=== PATIENT | male | born 1965 | race Caucasian/White ===

== ENCOUNTER 2022-10-17 10:12 | Outpatient (CLI) | payer BC, SELFPAY ==
[2022-10-17 14:59] LABS: Chloride* 104 mmol/L (96-114); Sodium* 138 mmol/L (135-149)
[2022-10-17 15:00] LABS: Potassium* 4.6 mmol/L (3.6-5.1)
[2022-10-17 15:02] LABS: Carbon Dioxide* 29 mmol/L (20-32); Cholesterol* 205 mg/dL (90-199); Estimated Glomerular Filt Rate 88 ml/min
[2022-10-17 15:03] LABS: Blood Urea Nitrogen* 16 mg/dL (7-30); Calcium* 9.7 mg/dL (8.4-10.6); Glucose* 85 mg/dL (60-115); HDL Cholesterol* 68 mg/dL (>=40); LDL Cholesterol Calculated 129 mg/dL (<100); Triglycerides* 40 mg/dL (40-149)
[2022-10-17 15:36] LABS: PSA Screen* 0.98 ng/mL (0.10-4.00)
== END 2022-10-17 10:13 | disposition home or self-care (01) ==
PROVIDERS: PCP Family Medicine; Visit Provider Family Medicine
DX: Z00.00 Encounter for general adult medical examination without abnormal findings (principal); M25.50 Pain in unspecified joint; Z12.5 Encounter for screening for malignant neoplasm of prostate; Z13.6 Encounter for screening for cardiovascular disorders; Z13.1 Encounter for screening for diabetes mellitus
CPT/HCPCS: 80048; 80061; 84153; 86618

== ENCOUNTER 2023-10-16 10:31 | Outpatient (CLI) | payer BC, SELFPAY | END 2023-10-16 10:32 | disposition home or self-care (01) | LOC: LKVREF 10:35 | PROVIDERS: PCP Family Medicine; Visit Provider Family Medicine | DX: Z00.00 Encounter for general adult medical examination without abnormal findings (principal); Z13.1 Encounter for screening for diabetes mellitus; Z12.5 Encounter for screening for malignant neoplasm of prostate | CPT/HCPCS: 84153 ==

== ENCOUNTER 2024-04-20 15:15 | Outpatient (CLI) | payer BC, SELFPAY ==
--- OUTSIDE RECORDS SUMMARY | 2024-04-20 15:19 | XMS_ITS | Encounter Summary ---
Author Organization [facility] Address [address] [place] [address] Care Team Providers Care Evaporator Operator Molasses Name Role Phone Suzanne Bautista PA-C Unavailable + [phone] Alexsander Buckner MD Primary Care Provider Ashley vailable Alexsander Buckner MD Unavailable Unavailab Suzanne Fernandez PA-C Unavailable + [phone] Suzanne Bautista PA-C Primary Care Provid er Alexsander Buckner MD Unavailable Unavailab Suzanne Fernandez PA-C Unavailable + [phone] Alexsander Buckner MD Unavailable Unavailab Suzanne Fernandez PA-C Unavailable + [phone] Suzanne Bautista PA-C Unavailable + [phone] Alexsander Buckner MD Unavailable Unavailab jacqueline Encounter Details Date Type Department Care Team (Late st Contact Info) Description 10/27/2020 MyC Medical Advice [facility] [address] [place] [address] Alexsander Buckner MD [place]NA[place]IVE IN [place] 02/24/2021 Social History Tobacco Use Types Packs/Day Years Used Date Smoking Tobacco: Never Smokeless Tobacco: Never Alcohol Use Standard Drinks/Week Comments Yes 0 (1 standard drink = 0.6 oz pur e alcohol) AUDIT-C Answer Date Recorded Q1: How often do you have a drink containing alc ohol? 2-3 times a week 04/06/2020 Q2: How many drinks containi ng alcohol do you have on a typical day when you are drinking? 5 or 6 04/06/2020 Q3: How often do you have si x or more drinks on one occasion? Less than monthly 04/06/2020 PHQ-2 Answer Date Recorded PHQ-2 Score 0 04/15/2020 Sex and Gender Information Value Date Recorded Sex Assigned at Not on file Gender Identity Not on file Sexual Orientation Not on file COVID-19 Exposure Response Date Recorded In the last month, have you been in contact with someone who was confirmed or suspected to have Coronavirus / COVID-19? No / Unsure 10/25/2020 10:24 AM SOFTWARE VALIDATION ENGINEER documented as of this encounter Plan of Treatment Not on file documented as of this encounter Visit Diagnoses Not on filedocumented in this encounter Care Teams Evaporator Operator Molasses Relationship Specialty Start Date End Date Alexsander Buckner MD [address] [address] PCP - General Family Practice 05/31/20 12/14/20 Suzanne Bautista PA-C [address] [address] PCP - General Family Medicine 12/15/20 Suzanne Bautista PA-C [address] [address] Assigned PCP 11/27/20 06/03/21 Alexsander Buckner MD [place]IVE IN [place] 02/24/2021 Assigned PCP 10/30/20 Suzanne Bautista PA-C [address] [address] Assigned PCP 03/10/20 10/29/20 Alexsander Buckner MD INACTIVE IN [place] 02/24/2021 Assigned PCP 06/04/21 Suzanne Bautista PA-C [address] [place] [address] Assigned PCP 10/29/21 12/02/21 Alexsander Buckner MD INACTIVE IN [place] 02/24/2021 Assigned PCP 12/03/21 Suzanne Bautista PA-C [address], [address] [place] [address] Assigned PCP 04/28/22 10/12/22 Suzanne Bautista PA-C [address], [address] [place] [address] Assigned PCP 12/22/22 05/31/23 Alexsander Buckner MD INACTIVE IN [place] 02/24/2021 Assigned PCP 06/01/23 documented as of this encounter
--- OUTSIDE RECORDS SUMMARY | 2024-04-20 15:19 | XMS_ITS | Clinical Summary ---
Author Organization [facility] Address [address] [place] [address] Care Team Providers Care Corporate Safety Manager Name Role Phone Suzanne Bautista PA-C Primary Care Provid er Allergies No known active allergies Medications Medication Sig Dispensed Refills Start Date End Date Status calcium polycarbophil (FIBERCON) 625 MG tablet Take 2 tablets (1,250 mg) by mouth daily 04/06/2020 Active [place]-3 Fish Oil 500 MG capsule Take 1 capsule (500 mg) by mouth daily 04/06/2020 Active sulfamethoxazole-tri methoprim (BACTRIM DS) 800-160 MG tabletIndications:Pr ostate infection Take 1 tablet by mouth 2 times daily 60 tablet 1 10/25/2020 Active Additional Information Patient not taking.Reported on 07/14/2023 Active Problems Problem Noted Date Diagnosed Date ACP (advance care planning) 04/15/2020 History of melanoma excision 04/06/2020 Elevated BP without diagnosis of hypertension Resolved Problems Problem Noted Date Diagnosed Date Resolved Date Health [facility] 04/15/2020 04/13/2024 Immunizations Name Administration Dates Next Due Hepatitis B, Adult 12/08/1998,07/14/1998, 998 Influenza Vaccine >6 months,quad, PF 11/06/2019 MMR 04/22/2019 Td (Adult), Adsorbed 05/18/2019,03/12/2000 Tdap (Adult) Unspecified Formulation 02/27/2010 Family History Medical History Relation Comments Colon Polyps Brother Skin Cancer Father Skin Cancer Mother Colon Cancer No family hx of Diabetes No family hx of Hyperlipidemia No family hx of Hypertension No family hx of Prostate Cancer No family hx of Relation Status Comments Brother Alive Father Maternal Grandfather Maternal Grandmother Mother Paternal Grandfather Paternal Grandmother Sister Alive Social History Tobacco Use Types Packs/Day Years Used Date Smoking Tobacco: Never Smokeless Tobacco: Never Tobacco Cessation:Counseling Given: Not Answered Alcohol Use Standard Drinks/Week Comments Yes 0 [...] Answer Date Recorded PHQ-2 Score 0 04/15/2020 Adolescent Education Answer Date Record ed Getting School Help Needed Not on file 07/23 Sex and Gender Information Value Date Recorded Sex Assigned at Not on file Gender Identity Not on file Sexual Orientation Not on file Last Filed Vital Signs Vital Sign Reading Time Taken Comments Blood Pressure 130/80 07/14/2023 7:09 PM CDT Pulse 89 07/14/2023 7:09 PM CDT Temperature 37.1 ??C (98.7 ??F) 07/14/2023 7:09 PM CD T Respiratory Rate 16 07/14/2023 7:09 PM CDT Oxygen Saturation 98% 07/14/2023 7:09 PM CDT Inhaled Oxygen Concentration - - Weight 77.1 kg (170 lb) 07/14/2023 7:09 PM CDT Height 177.8 cm (5' 10) 05/31/2020 9:44 AM CDT Body Mass Index 24.39 05/31/2020 9:44 AM CDT Plan of Treatment Health Maintenance Due Date Last Done Comments ANNUAL REVIEW OF HM ORDERS 1965 CT COLONOGRAPHY 1965 FIT 1965 FLEX SIG 1965 YEARLY PREVENTIVE VISIT 1965 sDNA (Cologuard) 1965 HEPATITIS C SCREENING 1983 ZOSTER IMMUNIZATION (1 of 2) 2015 COVID-19 Vaccine ( season) 2023 PHQ-2 (once per calendar year) 2023 04/15/2020 INFLUENZA VACCINE (Season Ended) 2024 08/15/2022, 08/09/2021, 11/06/2019 ADVANCE CARE PLANNING 04/15/2025 04/15/2020, 020 LIPID 04/16/2025 04/16/2020, 04/15/2020 GLUCOSE 07/14/2026 07/14/2023, 04/06/2020 DTAP/TDAP/TD IMMUNIZATION (3 - Td or Tdap) 05/18/2029 05/18/2019, 02/27/2010, 02/27/2010, Additional history exists COLONOSCOPY 05/09/2032 05/09/2022, 04/27, 04/02/2012 COLORECTAL CANCER SCREENING 05/09/2032 HEPATITIS B IMMUNIZATION Completed 999, 07/14/1998, 04/19/1998 HIV SCREENING Discontinued HPV IMMUNIZATION Aged Out No longer e ligible based on patient's age to complete this topic IPV IMMUNIZATION Aged Out No longer e ligible based on patient's age to complete this topic MENINGITIS IMMUNIZATION Aged Out No l onger eligible based on patient's age to complete this topic Pneumococcal Vaccine: Pediatrics (0 to 5 Years) and At-Risk Patients (6 to 64 Years) Aged Out No longer eligible based on patient's age to complete this topic RSV MONOCLONAL ANTIBODY Aged Out No l onger eligible based on patient's age to complete this topic Procedures Procedure Name Priority Date/Time Associated Diagnosis Comments COMPREHENSIVE METABOLIC PANEL Routine 07/14/2023 7:43 PM CDT Lyme arthritis (H) LIPID PANEL (BFP) Routine 04/15/2020 Screening for lipoid disorders from Last 3 Months or Most Recently Relevant to Health Maintenance Results * (ABNORMAL) Comprehensive metabolic panel (07/14/2023 7:43 PM CDT) Sodium 132(L) 136 - 145 mmol/L 07/15/2023 5:02 PM CDT [facility] Potassium 4.5 3.4 - 5.3 mmol/L 07/15/2023 5:02 PM CDT [facility] Chloride 98 98 - 107 mmol/L 07/15/2023 5:02 PM CDT [facility] Carbon Dioxide (CO2) 25 22 - 29 mmol/L 07/15/2023 5:02 PM CDT [facility] Anion Gap 9 7 - 15 mmol/L 07/15/2023 5:02 PM CDT [facility] Urea Nitrogen 13.9 6.0 - 20.0 mg/dL 07/15/2023 5:02 PM CDT [facility] Creatinine 0.93 0.67 - 1.17 mg/dL 07/15/2023 5:02 PM CDT [facility] Calcium 9.3 8.6 - 10.0 mg/dL 07/15/2023 5:02 PM CDT [facility] Glucose 104(H) 70 - 99 mg/dL 07/15/2023 5:02 PM CDT [facility] Alkaline Phosphatase 95 40 - 129 U/L 07/15/2023 5:02 PM CDT [facility] AST 27 0 - 45 U/L 07/15/2023 5:02 PM CDT [facility] Comment:Reference intervals for this test were updated on 04/08/2023 to more accurately reflect our healthy population. There may be differences in the flagging of prior results with similar values performed with this method. Interpretation of those prior results can be made in the context of the updated reference intervals. ALT 55 0 - 70 U/L 07/15/2023 5:02 PM CDT [facility] Comment:Reference intervals for this test were updated on 04/08/2023 to more accurately reflect our healthy population. There may be differences in the flagging of prior results with similar values performed with this method. Interpretation of those prior results can be made in the context of the updated reference intervals. Protein Total 6.6 6.4 - 8.3 g/dL 07/15/2023 5:02 PM CDT [facility] Albumin 4.0 3.5 - 5.2 g/dL 07/15/2023 5:02 PM CDT [facility] Bilirubin Total 0.8 <=1.2 mg/dL 07/15/2023 5:02 PM CDT [facility] GFR Estimate >90 >60 mL/min/1. 73m2 07/15/2023 5:02 PM CDT [facility] Blood BLOOD SPECIMEN / Unknown Venipuncture / Unknown 07/14/2023 7:43 PM CDT 07/14/2023 7:43 PM CDT Sonya Perez PA-C LAB - BLOOD ORDERABL ES [facility] [place] [facility] [address] [facility], [address] [place] [address], [facility] [phone] * (ABNORMAL) Lipid Panel (BFP) (04/15/2020) Cholesterol 205(A) 0 - 199 mg/dL [facility] INTERNAL Triglycerides 63 0 - 149 mg/dL [facility] INTERNAL HDL Cholesterol 62 40 - 150 mg/dL [facility] INTERNAL LDL Cholesterol Direct 130 0 - 130 mg/dL [facility] INTER[facility] Cholesterol/HDL Ratio 3 0 - 5 BFP INTERNAL Blood specimen (specimen) 04/15/2020 Suzanne Bautista PA-C LAB - NON-BE [facility] BLOOD LABS BFP INTERNAL from Last 3 Months or Most Recently Relevant to Health Maintenance Care Teams Corporate Safety Manager Relationship Specialty Start Date End Date Suzanne Bautista PA-C [address] , [facility] [address] [place] [address] PCP - General Family Medicine 12/15/20
--- OUTSIDE RECORDS SUMMARY | 2024-04-20 15:19 | XMS_ITS | Referral Summary ---
Author Organization [facility] Address [address] [place] [address] Care Team Providers Care Ticket Taker Ferryboat Name Role Phone Suzanne Bautista PA-C Primary Care Provid er Allergies No known active allergies Medications Medication Sig Dispensed Refills Start Date End Date Status calcium polycarbophil (FIBERCON) 625 MG tablet Take 2 tablets (1,250 mg) by mouth daily 04/06/2020 Active [place]-3 Fish Oil 500 MG capsule Take 1 [...] Noted Date Diagnosed Date Resolved Date Health [facility] 04/15/2020 04/13/2024 Immunizations Name Administration Dates Next Due Hepatitis B, Adult 12/08/1998,07/14/1998, 998 Influenza Vaccine >6 months,quad, PF 11/06/2019 MMR 04/22/2019 Td (Adult), Adsorbed 05/18/2019,03/12/2000 Tdap (Adult) Unspecified Formulation 02/27/2010 Social History Tobacco Use Types Packs/Day Years [...] 05/31/2020 9:44 AM CDT Plan of Treatment Not on file Procedures Procedure Name Priority Date/Time Associated Diagnosis [...] LAB - BLOOD ORDERABL ES [facility] [place] [facility] [address] [facility], [address] [place] [address], [facility] [phone] * (ABNORMAL) Lipid Panel (BFP) (04/15/2020) Cholesterol [...] Recently Relevant to Health Maintenance Care Teams Ticket Taker Ferryboat Relationship Specialty Start Date End Date Suzanne Bautista PA-C [address] , [facility] [address] [place] [address] PCP - General Family Medicine 12/15/20
--- OUTSIDE RECORDS SUMMARY | 2024-04-20 15:19 | XMS_ITS | Encounter Summary ---
Author Organization [facility] Address [address] [place] [address] Care Team Providers Care Wig Dresser Name Role Phone Suzanne Bautista PA-C Unavailable + [phone] Alexsander Buckner MD Primary Care Provider Ashley vailable Alexsander Buckner MD Unavailable Unavailab Suzanne Fernandez PA-C Primary Care Provid er Alexsander Buckner MD Unavailable Unavailab Suzanne Fernandez PA-C Unavailable + [phone] Alexsander Buckner MD Unavailable Unavailab Suzanne Fernandez PA-C Unavailable + [phone] Suzanne Bautista PA-C Unavailable + [phone] Alexsander Buckner MD Unavailable Unavailab le Reason for Visit * Reason Onset Date Comments Referral 11/08/2020 Encounter Details Date Type Department Care Team (Late st Contact Info) Description 11/08/2020 MyC Medical Advice [facility] [address] [place] [address] Alexsander Buckner MD INACTIVE IN [place] 02/24/2021 Referral Social History Tobacco Use Types Packs/Day Years [...] COVID-19? No / Unsure 10/25/2020 10:24 AM OVERSIZE LOAD PILOT ESCORT documented as of this encounter Miscellaneous Notes * Telephone Encounter - Alexsander Buckner - 11/09/2020 7:[address] [place] SIZE LOAD PILOT ESCORT documented in this encounter Plan of Treatment Not on file documented as of this encounter Visit Diagnoses Not on filedocumented in this encounter Care Teams Wig Dresser Relationship Specialty Start Date End Date Alexsander Buckner MD [address] [place] [address] PCP - General Family Practice 05/31/20 12/14/20 Suzanne Bautista PA-C [address] [address] PCP - General Family Medicine 12/15/20 Suzanne Bautista PA-C [address] [address] Assigned PCP 11/27/20 06/03/21 Alexsander Buckner MD [place]IVE IN [place] 02/24/2021 Assigned PCP 10/30/20 Alexsander Buckner MD INACTIVE IN [place] 02/24/2021 Assigned PCP 06/04/21 Suzanne Bautista PA-C [address], [address] [place] [address] Assigned PCP 10/29/21 12/02/21 Alexsander Buckner MD INACTIVE IN [place] 02/24/2021 Assigned PCP 12/03/21 Suzanne Bautista PA-C [address], [address] [place] [address] Assigned PCP 04/28/22 10/12/22 Suzanne Bautista PA-C [address], [address] [place] [address] Assigned PCP 12/22/22 05/31/23 Alexsander Buckner MD INACTIVE IN [place] 02/24/2021 Assigned PCP 06/01/23 documented as of this encounter
--- OUTSIDE RECORDS SUMMARY | 2024-04-20 15:19 | XMS_ITS | Encounter Summary ---
Author Organization [facility] Address [address] [place] [address] Care Team Providers Care Servomechanism Designer Name Role Phone Suzanne Bautista PA-C Unavailable + [phone] Alexsander Buckner MD Primary Care Provider Ashley vailaAlexsander Burnett MD Unavailable Unavailab Suzanen Fernandez PA-C Unavailable + [phone] Suzanne Bautista PA-C Primary Care Provid er Alexsander Buckner MD Unavailable Unavailab Suzanne Fernandez PA-C Unavailable + [phone] Alexsander Buckner MD Unavailable Unavailab Suzanne Fernandez PA-C Unavailable + [phone] Suzanne Bautista PA-C Unavailable + [phone] Alexsander Buckner MD Unavailable Unavailab jacquleine Encounter Details Date Type Department Care Team (Late st Contact Info) Description 06/07/2020 Orders Only [facility] [address] [facility] [address] [place] [address] Lorena Sullivan MA RUQ abdominal pain Social History Tobacco Use Types Packs/Day Years [...] have Coronavirus / COVID-19? No / Unsure 06/07/2020 12:21 PM CDT documented as of this encounter Plan of Treatment Not on file documented as of this encounter Procedures Procedure Name Priority Date/Time Associated Diagnosis Comments US ABDOMEN LIMITED Routine 06/07/2020 RUQ abdominal pain documented in this encounter Results * US Abdomen Limited (06/07/2020) Anatomical Region Laterality Modality Abdomen/Pelvis Other Narrative 06/07/2020 [facility] Phone: [phone] * Fax: [phone] [address] [place] [address] Age: 55 Y Dept No.: [id number] BRINA HARVEY : 1965 Chart # Gender: M Req. Phys: Suzanne Valencia PA-C Clinic MRN: Clinic: [facility] Acc#: [id number] Exam: US ABDOMEN LIMITED Exam Date: 06/07/2020 EXAM: US ABDOMEN LIMITED LOCATION: [facility] DATE/TIME: 06/07/2020 2:36 PM INDICATION: Intermittent right upper quadrant pain. COMPARISON: 09/29/2004 TECHNIQUE: Limited abdominal ultrasound. FINDINGS: GALLBLADDER: Normal. No gallstones, wall thickening, or pericholecystic fluid. Negative sonographic Hand's sign. BILE DUCTS: No biliary dilatation. The common duct measures 3 mm. LIVER: Normal parenchyma with smooth contour. No focal mass. RIGHT KIDNEY: No hydronephrosis. PANCREAS: The pancreas is largely obscured by overlying gas.. Normal caliber of the abdominal aorta. Patent intrahepatic IVC. No ascites. IMPRESSION: Negative gallbladder. Performed by: PATTI Transcribed By: SKYE on: 06/07/2020 4:32 PM CDT Finalized By: ABDOULAYE CHAPA M.D. on: 06/07/2020 4:32 PM CDT Dictated By: ABDOULAYE CHAPA M.D. Signed by: Page 1 of 1 Suzanne Bautista PA-C IMG US ORDER JOHN documented in this encounter Visit Diagnoses Diagnosis RUQ abdominal pain Abdominal pain, right upper quadrant documented in this encounter Care Teams Servomechanism Designer Relationship Specialty Start Date End Date Alexsander Buckner MD [address], [address] [address] PCP - General Family Practice 05/31/20 12/14/20 Suzanne Bautista PA-C [address], [address] [address] PCP - General Family Medicine 12/15/20 Suzanne Bautista PA-C [address], [address] [address] Assigned PCP 11/27/20 06/03/21 Alexsander Buckner MD INACTIVE IN [place] 02/24/2021 Assigned PCP 10/30/20 Suzanne Bautista PA-C [address], [address] [address] Assigned PCP 03/10/20 10/29/20 Alexsander Buckner MD [place] 02/24/2021 Assigned PCP 06/04/21 Suzanne Bautista PA-C [address], [address] [place] [address] Assigned PCP 10/29/21 12/02/21 Alexsander Buckner MD [place]IVE [place] 02/24/2021 Assigned PCP 12/03/21 Suzanne Bautista PA-C [address], [address] [place] [address] Assigned PCP 04/28/22 10/12/22 Suzanne Bautista PA-C [address], [address] [place] [address] Assigned PCP 12/22/22 05/31/23 Alexsander Buckner MD [place]IVE [place] 02/24/2021 Assigned PCP 06/01/23 documented as of this encounter
--- OUTSIDE RECORDS SUMMARY | 2024-04-20 15:20 | XMS_ITS | Clinical Summary ---
Author Organization [facility] Address [place], [place] [address] Care Team Providers Care Technology Applications Engineer Name Role Phone Sallie Delcid MD Primary Care Provider + Allergies No known active allergies Medications Medication Sig Dispensed Refills Start Date End Date Status omega-3 fatty acids-vitamin E (FISH OIL) 1,000 mg Cap Take by mouth. 0 09/26/2010 Act lake psyllium husk 0.4 gram cap Take 20 capsules by mouth once daily. 0 07/17/2017 Active Active Problems Problem Noted Date Diagnosed Date Hyperlipidemia, unspecified 03/17/2017 Overview: mild PAC (premature atrial contraction) 03/17/2017 Overview: Noted on EKG. Patient assymptomatic Insomnia, idiopathic 03/17/2017 Malignant melanoma of skin of trunk, except scro maxim 08/27/2012 Immunizations Name Administration Dates Next Due Hepatitis B (Adult) 12/08/1998,07/14/1998,1997 Td (Age >=7 Years) 03/12/2000 Tdap 02/27/2010 Family History Medical History Relation Name Comments Cancer-colon Brother polyps Good Health Daughter 1 Good Health Daughter 2 Cancer Father skin Hypertension Father Other Father Alcoholism Mother Cancer Mother skin Other Mother Good Health Sister Good Health Son Relation Name Status Comments Brother Alive Daughter 1 Alive Daughter 2 Alive Father (Age 70) liver canc er Mother (Age 57) esophagal varices Sister Alive Son Alive Social History Tobacco Use Types Packs/Day Years Used Date Smoking Tobacco: Never Smokeless Tobacco: Never Alcohol Use Standard Drinks/Week Comments Yes 8.3 (1 standard drink = 0.6 oz p ure alcohol) 6 daily on weekends Social Connections Answer Date Recorded Frequency of Communication with Friends and Fami ly Not on file 10/28/2021 Financial Resource Strain Answer Date R ecorded Difficulty of Paying Living Expenses Not on file 10/28/2021 Difficulty of Paying Living Expenses Not on file 10/28/2021 Sex and Gender Information Value Date Recorded Sex Assigned at Not on file Gender Identity Not on file Sexual Orientation Not on file Obstetrics History Last Filed Vital Signs Vital Sign Reading Time Taken Comments Blood Pressure 112/70 09/10/2017 9:21 AM MANUFACTURERS AGENT Pulse 96 09/10/2017 9:21 AM MANUFACTURERS AGENT Temperature 36.7 ??C (98 ??F) 09/10/2017 9:21 AM MANUFACTURERS AGENT Respiratory Rate 16 08/05/2014 7:18 PM CDT Oxygen Saturation 97% 09/10/2017 9:21 AM MANUFACTURERS AGENT Inhaled Oxygen Concentration - - Weight 78.5 kg (173 lb 1.6 oz) 09/10/2017 9:21 A M MANUFACTURERS AGENT Height 180 cm (5' 10.87) 09/10/2017 9:21 AM MANUFACTURERS AGENT Body Mass Index 24.23 09/10/2017 9:21 AM MANUFACTURERS AGENT Plan of Treatment Health Maintenance Due Date Last Done Comments HIV for age 15-65 1980 Hepatitis C screening for age 18-79 1983 Zoster (shingles) series for age 50+ (1 of 2) 2015 Depression screening for age 12+ 03/14/2018 03/14/2017, 11/02/2015 BMI (ht and wt on same day) for age 18+ 09/10/2018 09/10/2017, 03/14/2017, 09/11/2016, Additional history exists Lipids for age 45-75 06/07/2019 06/07/2014, 01/11/20 12 Tetanus booster 02/28/2020 02/27/2010, 03/12/2000 COVID-19 vaccine series ( season) 2023 Influenza for age 50-64 06/28/2024 Colonoscopy through age 75 05/09/2032 05/09/2022, Tdap Completed 02/27/2010 Pneumococcal series for age 6-64 Aged Out No longer eligible based on patient's age to complete this topic Procedures Procedure Name Priority Date/Time Associated Diagnosis Comments SCAN-COLONOSCOPY 05/09/2022 8:30 AM CDT LIPID PANEL W REFLEX MEASURED LDL Routine 06/07/2014 8:15 AM CDT Routine general medical examination at a health care facility from Last 3 Months or Most Recently Relevant to Health Maintenance Results * SCAN-COLONOSCOPY (05/09/2022 8:30 AM CDT) Narrative Procedure Note Camden Roa MD - 05/09/2022 7:31 AM CDT [facility] [address], [address], [place] [address] Patient Name: Mihir Isaac Gender: Male Exam Date: 05/09/2022 Visit Number: [id number] Age: 57 Years Date of : 1965 Attending MD: Camden Roa MD Medical Record#:[id number] Procedure: Colonoscopy Indications: Colorectal cancer screening Negative CS 10 y ago Family history of polyps in patient's brother. Age diagnosed:50-59. Referring MD: Referral Self Primary MD: Dong Melendez MD Medications: Intra Procedure Medications: Patient received monitored anesthesia care. Complications: No immediate complications Procedure: An examination of the heart and lungs was performed and found to be withinacceptable limits. . The patient was therefore deemed a reasonablecandidate for endoscopy and sedation. The risks and benefits of the procedure were explained to the patient.After obtaining informed consent, the patient received monitoredanesthesia care and I passed the scope without difficulty via the rectum to the ileum. The appendiceal orificeand ic valve were identified. The scope was retroflexed during theexamination The quality of the prep was good (Miralax/Gatorade/2 tabletsBisacodyl/Magnesium Citrate). This was a complete examination throughout the entire colon. Findings: Normal terminal ileum. Small internal hemorrhoids w/o bleeding. Polyp location: cecum. Quantity: 2. Size: 2-3 mm. Polyp shape:sessile. Maneuver: polypectomy was performed with a cold biopsy forceps. Removal: complete. Retrieval: complete. Bleeding: none. Polyp location: sigmoid. Quantity: 1. Size: 2 mm. Polyp shape: sessile. Maneuver: polypectomy was performed with a cold biopsy forceps . Removal: complete. Retrieval: complete. Bleeding: none. Impression: Colorectal polyps Hemorrhoids, internal MD impression comments: - Fiber rich diet. Preliminary Plan: The patient and their physician will receive a copy of the pathologyreport as well as pathology-based recommendations for future screening orsurveillance. Return to your primary care provider as needed. Pathology Results: A: COLON, CECUM, POLYPS: 1. Normal colonic mucosa; lymphoid aggregates are present(clinically, 2 polyps) 2. Negative for serrated change, dysplasia, and malignancy B: COLON, SIGMOID, POLYP: 1. Hyperplastic polyp MICROSCOPIC A: Performed B: Performed SPECIAL STAINING/DEEPER A: Deeper Electronically signed by: Aron [place] [address] Orders Instruction(s)/Education: Instruction/Education Timeframe Assessment Colon Cancer Prevention K63.5 Colon Cancer Prevention K63.5 Colon Polyps K63.5 Colon Polyps K63.5 Hemorrhoids K63.5 Hemorrhoids K63.5 High Fiber Diet K63.5 Final Plan: Repeat colonoscopy in 5 years. We will attempt to contact you at appropriate intervals via U.S. mail. Wemay not be able to find you or contact you at that time, therefore youshould know that the responsibility for following our recommendation restswith you. If you don't hear from us at the time your procedure is due,please contact our office to schedule an appointment. If your contactinformation should change, please contact our office so that we can updateyour record. _Electronically signed by: Camden Roa MD 05/09/2022 cc: Dong Melendez MD Camden Roa MD OTHER * (ABNORMAL) LIPID PANEL W REFLEX MEASURED LDL (06/07/2014 8:15 AM CDT) CHOLESTEROL,TOTAL 209(H) 100 - 199 mg/dL 06/07/2014 2:18 PM CDT [facility] TRIGLYCERIDES 80 <150 mg/dL 06/07/2014 2:18 PM CDT [facility] HDL CHOLESTEROL 50 >40 mg/dL 4 2:18 PM CDT [facility] NON-HDL CHOLESTEROL 159(H) <145 mg/dl 06/07/2014 2:18 PM CDT [facility] CHOL/HDL RATIO 4.18 <4.50 06/07/2014 2:18 PM CDT [facility] LDL CHOLESTEROL 143(H) <=130 mg/dL 06/07/2014 2:18 PM CDT [facility] PATIENT STATUS FASTING 06/07/2014 2:18 PM CDT [facility] Blood specimen (specimen) BLOOD SPECIMEN / Unknown Venipuncture / Unknown 06/07/2014 8:15 AM CDT 06/07/2014 8:19 AM CDT Alexsander Buckner MD CHEMISTRY [facility] [address] [place] [address], from Last 3 Months or Most Recently Relevant to Health Maintenance Advance Directives * Full Code (Latest Code Status on File) Date Activated Date Inactivated Comments 08/27/2012 10:51 AM 08/27/2012 3:08 PM * Full Code Date Activated Date Inactivated Comments 08/27/2012 8:33 AM 08/27/2012 10:51 AM Care Teams Technology Applications Engineer Relationship Specialty [place] [address] [place] [address] PCP - General Family Practice 03/17/17
== END 2024-04-20 15:16 | disposition home or self-care (01) ==
LOC: LKVREF 15:17
PROVIDERS: PCP Family Medicine; Visit Provider Family Medicine
DX: R06.00 Dyspnea, unspecified (principal)
CPT/HCPCS: 86140

== ENCOUNTER 2024-08-12 14:22 | Outpatient (CLI) | payer BC, SELFPAY ==
--- OUTSIDE RECORDS SUMMARY | 2024-08-12 14:26 | XMS_ITS | Encounter Summary ---
Author Organization [place] Address [address] [place] [address] Care Team Providers Care Toll Line Mechanic Name Role Phone Suzanne Bautista PA-C Unavailable + [phone] Alexsander Buckner MD Primary Care Provider Ashley vailable Alexsander Buckner MD Unavailable Unavailab Suzanne Fernandez PA-C Unavailable + [phone] Suzanne Bautista PA-C Primary Care Provid er Alexsander Buckner MD Unavailable Unavailab Suzanne Fernandez PA-C Unavailable + [phone] Alexsander Buckner MD Unavailable Unavailab Suzanne Fernandez PA-C Unavailable + [phone] Suzanne Bautista PA-C Unavailable + [phone] Alexsander Buckner MD Unavailable Unavailab jacqueline Encounter Details Date Type Department Care Team (Late st Contact Info) Description 10/27/2020 MyC Medical Advice [facility] [address] [place] [address] Alexsander Buckner MD INACTIVE IN [place] 02/24/2021 Social History Tobacco Use Types Packs/Day [...] COVID-19? 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 documented as of this encounter Plan of Treatment Not on file documented as of this encounter Visit Diagnoses Not on filedocumented in this encounter Care Teams Toll Line Mechanic Relationship Specialty Start Date End Date Alexsander Buckner MD [address] [address] PCP - General Family Practice 05/31/20 12/14/20 Suzanne Bautista PA-C [address] [address] PCP - General Family Medicine 12/15/20 Suzanne Bautista PA-C [address] [address] Assigned PCP 11/27/20 06/03/21 Alexsander Buckner MD INACTIVE IN [place] 02/24/2021 Assigned PCP 10/30/20 Suzanne Bautista PA-C [address] [address] Assigned PCP 03/10/20 10/29/20 Alexsander Buckner MD INACTIVE IN [place] 02/24/2021 Assigned PCP 06/04/21 Suzanne Bautista PA-C [address] [place] [address] Assigned PCP 10/29/21 12/02/21 Alexsander Buckner MD INACTIVE IN [place] 02/24/2021 Assigned PCP 12/03/21 Suzanne Bautista PA-C [address], [address] [place] [address] Assigned PCP 04/28/22 10/12/22 Suzanne Bautista PA-C [address], [address] [place] [address] Assigned PCP 12/22/22 05/31/23 Alexsander Buckner MD INACTIVE IN [place] 02/24/2021 Assigned PCP 06/01/23 documented as of this encounter
--- OUTSIDE RECORDS SUMMARY | 2024-08-12 14:26 | XMS_ITS | Encounter Summary ---
Author Organization [facility] Address [address] [place] [address] Care Team Providers Care Dry Color Tester Name Role Phone Suzanne Bautista PA-C Unavailable + [phone] Alexsander Buckner MD Primary Care Provider Ashley vailaAlexsander Burnett MD Unavailable Unavailab Suzanne Fernandez PA-C Unavailable + [phone] Suzanne Bautista PA-C Primary Care Provid er Alexsander Buckner MD Unavailable Unavailab Suzanne Fernandez PA-C Unavailable + [phone] Alexsander Buckner MD Unavailable Unavailab Suzanne Fernandez PA-C Unavailable + [phone] Suzanne Bautista PA-C Unavailable + [phone] Alexsander Buckner MD Unavailable Unavailab jacqueline Encounter Details Date Type Department Care Team (Late st Contact Info) Description 06/07/2020 Orders Only [facility] [address] [place] [address] Lorena Sullivan MA RUQ abdominal [...] Region Laterality Modality Abdomen/Pelvis Other Narrative 06/07/2020 [facility] Phone: [phone] * Fax: [phone] [address] [place] [address] Age: 55 Y Dept No.: [id number] BRINA HARVEY : 1965 Chart # Gender: M Req. Phys: Suzanne Valencia PA-C Clinic MRN: Clinic: [facility] Acc#: [id number] Exam: US ABDOMEN LIMITED Exam Date: 06/07/2020 EXAM: US ABDOMEN LIMITED LOCATION: [facility] DATE/TIME: 06/07/2020 2:36 PM INDICATION: Intermittent right [...] quadrant documented in this encounter Care Teams Dry Color Tester Relationship Specialty Start Date End Date Alexsander Buckner MD [address], [address] [address] PCP - General Family Practice 05/31/20 12/14/20 Suzanne Bautista PA-C [address], [address] [address] PCP - General Family Medicine 12/15/20 Suzanne Bautista PA-C [address], [address] [address] Assigned PCP 11/27/20 06/03/21 Alexsander Buckner MD I[place]CTIVE IN [place] 02/24/2021 Assigned PCP 10/30/20 Suzanne Bautista PA-C [address], [address] [address] Assigned PCP 03/10/20 10/29/20 Alexsander Buckner MD [place] 02/24/2021 Assigned PCP 06/04/21 Suzanne Bautista PA-C [address], [address] [place] [address] Assigned PCP 10/29/21 12/02/21 Alexsander Buckner MD [place] 02/24/2021 Assigned PCP 12/03/21 Suzanne Bautista PA-C [address], [address] [place] [address] Assigned PCP 04/28/22 10/12/22 Suzanne Bautista PA-C [address] [place] [address] Assigned PCP 12/22/22 05/31/23 Alexsander Buckner MD [place] IN [place] 02/24/2021 Assigned PCP 06/01/23 documented as of this encounter
--- OUTSIDE RECORDS SUMMARY | 2024-08-12 14:26 | XMS_ITS | Clinical Summary ---
Author Organization [facility] Address [address] [place] [address] Care Team Providers Care Client Technical Professional Name Role Phone Suzanne Bautista PA-C Primary Care Provid er Allergies No known active allergies Medications Medication Sig Dispensed Refills Start Date End Date Status calcium polycarbophil (FIBERCON) 625 MG tablet Take 2 tablets (1,250 mg) by mouth daily 04/06/2020 Active [place]-3 Fish Oil 500 MG capsule Take 1 [...] Noted Date Diagnosed Date Resolved Date Health Assisted 04/15/2020 04/13/2024 Immunizations Name Administration Dates Next [...] 1983 ZOSTER IMMUNIZATION (1 of 2) 2015 PHQ-2 (once per calendar year) 2023 04/15/2020 COVID-19 Vaccine ( season) 2024 INFLUENZA VACCINE (#1) 2024 2, 08/09/2021, 11/06/2019 ADVANCE CARE PLANNING 04/15/2025 04/15/2020, 020 LIPID 04/16/2025 04/16/2020, 04/15/2020 GLUCOSE 07/14/2026 07/14/2023, 04/06/2020 DTAP/TDAP/TD IMMUNIZATION (3 - Td or Tdap) 05/18/2029 05/18/2019, 02/27/2010, 02/27/2010, Additional history exists COLONOSCOPY 05/09/2032 05/09/2022, 04/27, 04/02/2012 COLORECTAL CANCER SCREENING 05/09/2032 RSV VACCINE (1 - 1-dose 75+ series) 2040 HEPATITIS B IMMUNIZATION Completed 999, 07/14/1998, 04/19/1998 [...] LAB - BLOOD ORDERABL ES [facility] [place] [facility] [address], [address] [place] [address], [facility] [phone] * (ABNORMAL) Lipid Panel (BFP) (04/15/2020) Cholesterol [...] Recently Relevant to Health Maintenance Care Teams Client Technical Professional Relationship Specialty Start Date End Date Suzanne Bautista PA-C [address] [place] [address] PCP - General Family Medicine 12/15/20
--- OUTSIDE RECORDS SUMMARY | 2024-08-12 14:26 | XMS_ITS | Referral Summary ---
Author Organization [facility] Address [address] [place] [address] Care Team Providers Care Rubber Tire Curer Name Role Phone Suzanne Bautista PA-C Primary Care Provid er Allergies No known active allergies Medications Medication Sig Dispensed Refills Start Date End Date Status calcium polycarbophil (FIBERCON) 625 MG tablet Take 2 tablets (1,250 mg) by mouth daily 04/06/2020 Active [place]-3 Fish Oil 500 MG capsule Take 1 [...] Noted Date Diagnosed Date Resolved Date Health Senior Living 04/15/2020 04/13/2024 Immunizations Name Administration Dates Next [...] LAB - BLOOD ORDERABL ES [facility] [place] [facility] [address], [address] [place] [address], [facility] [phone] * (ABNORMAL) Lipid Panel (BFP) (04/15/2020) Cholesterol [...] Recently Relevant to Health Maintenance Care Teams Rubber Tire Curer Relationship Specialty Start Date End Date Suzanne Bautista PA-C [address], [address] [place] [address] PCP - General Family Medicine 12/15/20
--- OUTSIDE RECORDS SUMMARY | 2024-08-12 14:26 | XMS_ITS | Encounter Summary ---
Author Organization [facility] Address [address] [place] [address] Care Team Providers Care Toe Puller Name Role Phone Suzanne Bautista PA-C Unavailable + [phone] Alexsander Buckner MD Primary Care Provider Ashley vailable Alexsander Buckner MD Unavailable Unavailab Suzanne Fernandez PA-C Primary Care Provid er Alexsander Buckner MD Unavailable Unavailab Suzanne Fernandez PA-C Unavailable + [phone] Alexsander Buckner MD Unavailable Unavailab Suzanne Fernandez PA-C Unavailable + [phone] Suzanne Bautista PA-C Unavailable + [phone] Alexsander Buckner MD Unavailable Unavailab le Reason for Visit * Reason Onset Date Comments Referral 11/08/2020 Encounter Details Date Type Department Care Team (Late st Contact Info) Description 11/08/2020 MyC Medical Advice [facility] [address] [place] [address] Alexsander Buckner MD INACTIVE IN [place] 02/24/2021 Referral Social History Tobacco Use Types [...] COVID-19? 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 documented as of this encounter Miscellaneous Notes * Telephone Encounter - Alexsander Buckner - 11/09/2020 7:[address] [place] CAL PERFORMER documented in this encounter Plan of Treatment Not on file documented as of this encounter Visit Diagnoses Not on filedocumented in this encounter Care Teams Toe Puller Relationship Specialty Start Date End Date Alexsander Buckner MD [address] [place] [address] PCP - General Family Practice 05/31/20 12/14/20 Suzanne Bautista PA-C [address] [address] PCP - General Family Medicine 12/15/20 Suzanne Bautista PA-C [address] [address] Assigned PCP 11/27/20 06/03/21 Alexsander Buckner MD INACTIVE IN [place] 02/24/2021 Assigned PCP 10/30/20 Alexsander Buckner MD INACTIVE IN [place] 02/24/2021 Assigned PCP 06/04/21 Suzanne Bautista PA-C [address] [place] [address] Assigned PCP 10/29/21 12/02/21 Alexsander Buckner MD INACTIVE IN [place] 02/24/2021 Assigned PCP 12/03/21 Suzanne Bautista PA-C [address], [address] [place] [address] Assigned PCP 04/28/22 10/12/22 Suzanne Bautista PA-C [address] [place] [address] Assigned PCP 12/22/22 05/31/23 Alexsander Buckner MD INACTIVE IN [place] 02/24/2021 Assigned PCP 06/01/23 documented as of this encounter
== END 2024-08-12 14:23 | disposition home or self-care (01) ==
PROVIDERS: PCP Family Medicine; Visit Provider Family Medicine
DX: Z00.00 Encounter for general adult medical examination without abnormal findings (principal); R05.9 Cough, unspecified; Z13.1 Encounter for screening for diabetes mellitus; Z13.6 Encounter for screening for cardiovascular disorders; Z12.5 Encounter for screening for malignant neoplasm of prostate
CPT/HCPCS: 80053; 80061; G0103

== ENCOUNTER 2025-08-13 14:10 | Outpatient (CLI) | payer BC, SELFPAY | END 2025-08-13 14:11 | disposition home or self-care (01) | PROVIDERS: PCP Family Medicine; Visit Provider Family Medicine | DX: R06.02 Shortness of breath (principal); Z13.6 Encounter for screening for cardiovascular disorders; Z12.5 Encounter for screening for malignant neoplasm of prostate | CPT/HCPCS: 80053; 80061; G0103 ==